=== PATIENT | male | born 1940 | race Caucasian/White ===

== ENCOUNTER 2021-09-25 22:58 | Emergency (ER) | payer MEDICARE, OTHER ==
[~2021-09-25] VITALS: Ht 182.9 cm; Wt 90.0 kg
[2021-09-25 23:03] VITALS: TEMP 98.4
[2021-09-26 01:20] VITALS: BP 122/69; PULSE 88
== END 2021-09-26 01:20 | disposition home or self-care (01) ==
LOC: COL.ER 22:58
DX: S01.111A Laceration without foreign body of right eyelid and periocular area, initial encounter (principal); S60.412A Abrasion of right middle finger, initial encounter; S60.414A Abrasion of right ring finger, initial encounter; S60.416A Abrasion of right little finger, initial encounter; S50.311A Abrasion of right elbow, initial encounter; R07.81 Pleurodynia; W01.198A Fall on same level from slipping, tripping and stumbling with subsequent striking against other object, initial encounter; Y93.01 Activity, walking, marching and hiking; Y92.511 Restaurant or cafe as the place of occurrence of the external cause